=== PATIENT | female | born 2000 | race Caucasian/White ===

== ENCOUNTER 2021-06-26 16:27 | Emergency (ER) | payer OTHER ==
[~2021-06-26] VITALS: Ht 172.7 cm; Wt 77.1 kg
[2021-06-26] MEDS ORDERED: ONDANSETRON HCL 4 MG TABLET PO ONE (17:00)
[2021-06-26] MEDS ORDERED: MECLIZINE HCL 25 MG TABLET PO ONE (17:00)
[2021-06-26] MEDS ORDERED: MECL-159 PO (17:02)
[2021-06-26] MEDS ORDERED: ONDA4TAB11 PO (17:02)
--- NOTE | 2021-06-26 17:07 | NUR ---
Pt taken down for CT scan via wheelchair by tech. Mother will wait at bedside. Pt in stable condition at time of transport.
[2021-06-26] MEDS ORDERED: MECLIZINE HCL 25 MG TABLET ONE (17:13)
[2021-06-26] MEDS ORDERED: ONDANSETRON HCL 4 MG TABLET ONE (17:13)
[2021-06-26 17:48] LABS: *BILIRUBIN,URIN NEGATIVE (NEGATIVE); *BLOOD, URINE 3+ (NEGATIVE); *COLOR,URINE YELLOW (YELLOW); *KETONES,URINE NEGATIVE (NEGATIVE); *UROBILINOGEN,URINE 0.2 E.U./dl (NORMAL); LEUKOCYTE ESTERASE ,URINE TRACE (NEGATIVE); NITRITE, URINE NEGATIVE (NEGATIVE); PH,URINE 5.5 (5.0-8.0); UGLUCOSE NEGATIVE (NEGATIVE)
[2021-06-26 17:49] LABS: *URINE HCG, QUAL NEGATIVE (NEGATIVE)
[2021-06-26 18:02] LABS: *CLARITY,URINE SLIGHTLY HAZY (CLEAR)
[2021-06-26 18:03] LABS: BACTERIA,URINE FEW /HPF (NONE SEEN); SQUAMOUS EPITHELIAL CELL,UR MODERATE /HPF (NONE SEEN)
--- NOTE | 2021-06-26 18:12 | NUR ---
[employer]ircraft [employer] assumes care, 1st contact with patient: AOx4, calm and breathing easily, denies any dizziness or discomfort@this time. Patient is for discharge by Dr Castilol. Patient discharged to home in stable condition and steady gait. Written and verbal after care instructions given to patient and mother. Patient and family verbalized understanding and compliance of instructions. Stressed follow up with primary doctor and neurologist or return to ER for worsening s/s.
== END 2021-06-26 18:12 | disposition home or self-care (01) ==
LOC: ER 16:32
DX: R42 Dizziness and giddiness (principal)
CPT/HCPCS: 70450; 84703; A4663; J8597; Q0162